=== PATIENT | male | born 2000 | race Caucasian/White ===

== ENCOUNTER 2021-06-07 00:32 | Emergency (ER) | payer BC, SELFPAY ==
[2021-06-07 00:33] VITALS: BP 133/73; PULSE 78; RESP 16; TEMP 36.7; O2SAT 98; BMI 27.9
--- NOTE | 2021-06-07 01:26 | EX.ED.UPPERE ---
HPI History of Present Illness Chief Complaint: Upper Extremity Injury Informant: patient Narrative Narrative: Patient is a 21-year-old male with no significant past medical history, [id number], presenting with right hand injury. Patient became upset and punched a wall in his house. He immediately had pain over his right 4th and 5th knuckles and hand. Sustained an abrasion from it. Is not sure his last tetanus was. No associated numbness or tingling. No other complaints at this time. Prior injuries to his hand. Tetanus Immunization: Unknown [facility] Home Medications melatonin mg 06/07/21 [History Last Taken Unknown] Allergy/AdvReac Type Severity Reaction Status Date / Time melon Allergy Itching Verified 06/07/21 00:37 Penicillins [PCN] Allergy Hives Verified 06/07/21 00:37 Social History Smoking Status: Never smoker ROS ROS ED Constitutional Constitutional ED: Denies chills or fever(s) Eyes Eyes: Denies change in vision Cardiovascular Cardiovascular: Denies chest pain Respiratory/Chest Respiratory/Chest: Denies dyspnea Gastrointestinal Gastrointestinal: Denies vomiting Musculoskeletal Musculoskeletal: Reports other Details: right hand pain and swelling ; Denies myalgias Integumentary Reports Abrasions; Denies rash Neurologic Neurologic: Denies headache(s), paresthesias or weakness EXAM Physical Exam Const Vital Signs: 06/07/21 00:33 Temperature 98.0 F Temperature Source Temporal Pulse Rate 78 Respiratory Rate 16 Blood Pressure 133/73 H Blood Pressure Mean 93 Pulse Ox 98 Oxygen Delivery Method Room Air Positive well nourished and well developed General Appearance ED: well developed HEENT normocephalic and atraumatic; Negative for trauma Eyes PERRL and EOMs intact bilaterally Neck full ROM and supple Chest Wall inspection of chest normal Resp normal respiratory effort and clear to auscultation bilaterally Cardio regular rate, regular rhythm and no murmurs Extremity Extremity Narrative: Tenderness palpation of the right 4th and 5th metacarpals with associated swelling. No obvious tenting of the skin or deformity. Patient has difficulty fully making a fist but does not have a rotational deformity of the 4th and 5th fingers. Neuro oriented x3, moves all extremities and no sensory deficits noted Sensorium / Orientation: alert Motor Exam: strength 5/5 throughout Psych mental status grossly normal Skin Skin Narrative: Superficial abrasion just proximal to the 4th and 5th right MCP joints along the dorsal aspect of the hand MDM MDM MDM Narrative Medical decision making narrative: Patient evaluated right hand injury after he punched a wall. No obvious deformity but he does have swelling of the right hand over the fourth and fifth metacarpals. No obvious rotational deformity of the fingers. X-ray interpreted by myself does not show any acute fracture. Patient placed in a Ady wrap. Given a dose of Motrin in the ER. Discharged home with instructions to take Motrin as needed for pain and swelling and rice therapy. Instructed to follow-up with [facility] but is given information for orthopedics if he has continued pain of his hand. His tetanus is up-to-date. Patient is counseled on signs and symptoms requiring return to the emergency room. Patient verbalizes agreement and understands this plan. Patient discharged home in stable and improved condition. Radiography Diagnostic Testing: Right hand x-ray?no acute fracture interpreted by emergency medicine physician Discharge Plan Triage Chief Complaint: Upper Extremity Injury ED Provider: Nan Hudson Dx/Rx/DC Orders Clinical Impression: Injury of hand, right, Abrasion of hand, right Instructions: ED Contusion, Upper Extremity Prescriptions: No Action melatonin 5 mg Capsule RF: 0 Primary Care Provider: Care Physician,No Primary Referrals: Jean Paul Rodriguez DO [STAFF PHYSICIAN] - Care Physician,No Primary [Primary Care Provider] - Activity Restrictions/Additional Instructions: You do not have an obvious fracture or broken bone. I suspect he just bruised/contused your hand. Wear Ady wrap, ice, elevate and take ibuprofen for pain and swelling. If you do not have improvement over the next week I have given you information for orthopedist, Dr. Rodriguez. Otherwise you should be fine to follow-up with [facility]. Disposition Disposition: Home, Self Care Discharge Date/Time: 06/07/21 03:07
[2021-06-07] MEDS: Ibuprofen 600 MG Tablet PO (01:29)
--- NOTE | 2021-06-07 02:00 | RAD_ITS ---
STUDY: X-RAY - RIGHT HAND REASON FOR EXAM: Male, 21 years old. pain TECHNIQUE: 3 view(s) of the hand. COMPARISON: None. FINDINGS: Normal radiocarpal articulation. Normal distal radioulnar joint. Normal visualized carpal bones. Normal carpal articulations Normal carpometacarpal articulation of the thumb. Normal second through fifth carpometacarpal joints. Normal metacarpi. Normal metacarpophalangeal joint of the thumb. Normal interphalangeal joint of the thumb. Normal proximal and distal phalanges of the thumb. Normal metacarpophalangeal joints of the second through fifth fingers. Normal proximal and distal interphalangeal joints of the second through fifth fingers. Normal phalanges of the second through fifth fingers. The soft tissue structures are unremarkable. RAD/Hand Min 3 Views IMPRESSION: Normal x-ray examination of the hand. Electronically Signed: Marco Hernandez MD at 2:57 EST ,
[2021-06-07 03:03] VITALS: BP 130/74; PULSE 78; RESP 17; O2SAT 99
== END 2021-06-07 03:07 | disposition home or self-care (01) ==
PROVIDERS: Emergency Provider Emergency Medicine; Visit Provider Emergency Medicine
DX: S60.511A Abrasion of right hand, initial encounter (principal); W22.01XA Walked into wall, initial encounter
CPT/HCPCS: 73130; 99282